=== PATIENT | male | born 1980 | race Caucasian/White ===

== ENCOUNTER 2018-09-20 22:15 | Emergency (ER) | payer OTHER ==
[~2018-09-20] VITALS: Ht 188 cm; Wt 86.2 kg
[~2018-09-20 22:15] MED LIST: AMOXICILLIN875 MG PO; ULTRACET TABLE1 EACH PO; VICODIN
[2018-09-20] MEDS ORDERED: KEFLEX500 M1 PO (23:36)
[2018-09-20 23:44] VITALS: BP 116/74
== END 2018-09-20 23:44 | disposition home or self-care (01) ==
LOC: ER 22:15
DX: L03.116 Cellulitis of left lower limb (principal)

== ENCOUNTER 2020-01-30 18:50 | Emergency (ER) | payer OTHER ==
[~2020-01-30] VITALS: Ht 180.3 cm; Wt 86.2 kg
[~2020-01-30 18:50] MED LIST changes: +KEFLEX500 M1 PO
[2020-01-30 21:30] VITALS: BP 117/77
== END 2020-01-30 21:31 | disposition home or self-care (01) ==
LOC: ER 18:50
DX: F10.129 Alcohol abuse with intoxication, unspecified (principal); Z79.2 Long term (current) use of antibiotics; Y90.9 Presence of alcohol in blood, level not specified